=== PATIENT | female | born 1990 | race Caucasian/White ===

== ENCOUNTER 2019-12-26 16:47 | Inpatient (IN) | payer BC, OTHER ==
[2019-12-26] MEDS ORDERED: METHYLERGONOVINE 0.2 MG/ML 1 ML AMP IM PRN (18:17)
[2019-12-26] MEDS ORDERED: CARBOPROST TROMETHAMINE 250 MCG/ML 1 ML AMP IM PRN (18:17)
[2019-12-26] MEDS ORDERED: AMPICILLIN 2,000 MG in SODIUM CHLORIDE 0.9% 100 ML IVPB STA (18:17)
[2019-12-26] MEDS ORDERED: LIDOCAINE 0.5% (PF) 5 MG/ML (50 ML SDV) SQ PRN (18:17)
[2019-12-26] MEDS ORDERED: OXYTOCIN 10 UNIT/ML 1 ML VIAL IM PRN (18:17)
[2019-12-26] MEDS ORDERED: TERBUTALINE 1 MG/ML VIAL SQ PRN (18:17)
[2019-12-26] MEDS: LACTATED RINGERS 1,000 ML IV SCH ×2 (18:37→23:04)
[2019-12-26 19:00] LABS: Basophils % (A) 0 %; Eosinophils # (A) 0.1 k/uL (0-0.7); Eosinophils % (A) 1 %; HCT 38.2 % (34.0-46.0); HGB 12.5 gm/dL (11.4-16.0); Lymphocytes # (A) 2.1 k/uL (1.0-4.8); Lymphocytes % (A) 12 %; MCHC 32.8 g/dL (31.0-37.0); MCV 88.3 fL (80.0-100.0); Mean Platelet Volume 8.2; Monocytes # (A) 0.8 k/uL (0-1.0); Monocytes % (A) 5 %; Neutrophils # (A) 13.8 k/uL (1.3-7.7); Neutrophils % (A) 80 %; Platelet Count 268 k/uL (150-450); RBC 4.33 m/uL (3.80-5.40); RDW 14.2 % (11.5-15.5); WBC 17.2 k/uL (3.8-10.6)
[2019-12-26] MEDS ORDERED: SODIUM CHLORIDE 0.9% 100 ML BAG ONE (19:31)
[2019-12-26] MEDS ORDERED: fentaNYL (PF) 50 MCG/ML 5 ML AMP ONE (19:31)
[2019-12-26] MEDS ORDERED: ROPIVACAINE 5MG/ML 20ML VIAL ONE (19:31)
[2019-12-26] MEDS: AMPICILLIN 1,000 MG in SODIUM CHLORIDE 0.9% 50 ML IVPB SCH (23:04)
[2019-12-27] MEDS ORDERED: CITRIC ACID-SODIUM CITRATE 15 ML CUP PO ONE (01:05)
[2019-12-27] MEDS ORDERED: SUCCINYLCHOLINE CHLORIDE 100 MG/5 ML SYR IV ONE (01:26)
[2019-12-27] MEDS ORDERED: KETOROLAC 30 MG/ML 1 ML VIAL ONE (01:26)
[2019-12-27] MEDS ORDERED: PROPOFOL 10 MG/ML 20 ML VIAL IV ONE (01:26)
[2019-12-27] MEDS ORDERED: ceFAZolin 1,000 MG VIAL ONE (01:26)
[2019-12-27] MEDS ORDERED: fentaNYL (PF) 50 MCG/ML 2 ML AMP ONE (01:26)
[2019-12-27] MEDS ORDERED: HYDROmorphone (PF) 1 MG/ML ONE (01:26)
[2019-12-27] MEDS ORDERED: ONDANSETRON 4 MG/2 ML VIAL ONE (01:26)
[2019-12-27] MEDS ORDERED: diphenhydrAMINE 25 MG CAP PO PRN (02:09)
[2019-12-27] MEDS ORDERED: ZOLPIDEM 5 MG TAB PO PRN (02:09)
[2019-12-27] MEDS ORDERED: METOCLOPRAMIDE 5 MG/ML 2 ML VIAL IVP PRN (02:09)
[2019-12-27] MEDS ORDERED: ONDANSETRON 4 MG/2 ML VIAL IVP PRN (02:09)
[2019-12-27] MEDS ORDERED: NALOXONE 0.4 MG/ML 1 ML VIAL IV PRN ×2 (02:09→02:11)
[2019-12-27] MEDS ORDERED: ACETAMINOPHEN TAB 325 MG TAB PO PRN (02:09)
[2019-12-27] MEDS ORDERED: diphenhydrAMINE 50 MG/ML 1 ML VIAL IVP PRN ×2 (02:09)
[2019-12-27] MEDS ORDERED: IBUPROFEN 600 MG TAB PO PRN (02:09)
[2019-12-27] MEDS ORDERED: diphenhydrAMINE 50 MG CAP PO PRN (02:09)
--- NOTE | 2019-12-27 02:16 | P.OP ---
Date of Procedure: 12/27/19 Preoperative Diagnosis: Intrauterine : Failure to descend Postoperative Diagnosis: Same with occiput posterior position/cephalopelvic disproportion Procedure(s) Performed: Primary low transverse section Anesthesia: TOMASA Surgeon: Orlin Srivastava Shoe Repairer #1: Tangela Estrella Estimated Blood Loss (ml): 600 IV fluids (ml): 200 Urine output (ml): 600 Pathology: other (Placenta) Condition: stable Disposition: floor Operative Findings: Female scores of 57 and 8 at one and 5 and 10 minutes respectively weight was 5 lbs. 15 oz. straight OP position Description of Procedure: Patient was taken to the operating suite where a general anesthetic was found be adequate. She was prepped and draped in the normal sterile fashion placed in the dorsal supine position with leftward tilt. Initially a Pfannenstiel skin incision was made and this incision was then carried through to the underlying layer of the fascia. Fascia was then nicked in the midline and this opening was extended laterally with White scissors. Superior and inferior aspect of this incision were then grasped tented up and bluntly and sharply dissected off the rectus muscles. Rectus muscle then divided midline and blunt dissection. Peritoneum was made. This opening was then extended superiorly and inferiorly with good visualization of both bowel bladder. Bladder blade was then placed bladder flap identified and with Metzenbaum scissors and carried across face uterus with Metzenbaum scissors. Knife was then used to incise the uterus. This opening was then fully developed with hemostat and then bluntly extended. Head was then brought out of the pelvis from straight Opie position and mouth nares were then bulb suctioned. Interim posterior shoulders were easily delive red followed by the remainder the baby and the umbilical cord was then clamped cut usual fashion with nursery personnel present to assume care. Placenta was then delivered intact and Pitocin was added to the IV. Uterus was then exteriorized cleared of clots debris and closed in 2 layers with 0 Vicryl suture. Once excellent hemostasis was obtained blood and debris was suctioned from the posterior cul-de-sac and uterus was reinserted into the abdomen. Peritoneal layer was then closed with 0 Vicryl suture. Fascial was then closed with 0 Vicryl suture. One layer of 3-0 Vicryl was placed in deep subcuticular tissues reapproximate skin and close space. Skin was then closed with 3-0 Vicryl on a Deshawn needle. Sponge, lap needle counts were all correct 2. Patient was then taken to the recovery room in stable and satisfactory condition.
--- NOTE | 2019-12-27 02:19 | P.HPOB ---
History of Present Illness H&P Date: 12/27/19 Chief Complaint: Intrauterine at term: Active labor Silvana is a 29-year-old at 39 weeks gestation who arrives with contractions every 2-3 minutes making cervical change. She initially was dilated to 2 cm and at my evaluation she was dilated 4 cm 90% effaced -2 station. Artificial rupture membranes was performed and clear fluid is noted. She does made use of epidural for analgesia. Her course was, complicated by hyperemesis losing approximately 30 pounds in the first 18 weeks the , what to stabilize she did well. Once this resolved she had no further complications or issues with the . It is noted that patient is heart hearing but she does read lips well and does hear some. GBS is noted positive. Pertinent labs include open negative blood type Rh antibody was negative. Rubella is immune. Hepatitis B surface antigen was also negative as was HIV and RPR. heart tones show a category 1 tracing and are reactive. Assessment intrauterine at term. Plan expect spontaneous vaginal delivery. Past Medical History Past Medical History: Hearing Disorder / Deafness, Seizure Disorder Additional Past Medical History / Comment(s): [place]- able to read lips,seizures as an infant-only on meds as an ,asthma as a child History of Any Multi-Drug Resistant Organisms: None Reported Past Surgical History: Breast Surgery Additional Past Surgical History / Comment(s): growth removed rt breast Past Anesthesia/Blood Transfusion Reactions: No Reported Reaction Past Psychological History: Anxiety, Depression Smoking Status: Never smoker Past Alcohol Use History: Occasional Past Drug Use History: None Reported - Past Family History Mother Family Medical History: No Reported History Father Family Medical History: Hyperlipidemia, Hypertension Medications and Allergies Home Medications Medication Instructions Recorded Confirmed Type Esomeprazole Magnesium [NexIUM] 1 tab PO DAILY 12/26/19 12/26/19 History Pnv,Calcium 72/Iron/Folic Acid 1 tab PO DAILY 12/26/19 12/26/19 History [ Plus Tablet] Allergies Allergy/AdvReac Type Severity Reaction Status Date / Time No Known Allergies Allergy Verified 12/26/19 17:05 Exam Osteopathic Statement: *. No significant issues noted on an osteopathic structural exam other than those noted in the History and Physical/Consult. Vital Signs Temp Pulse Resp BP Pulse Ox 12/26/19 17:08 97.0 F L 100 18 128/88 98 Intake and Output 12/26/19 12/26/19 12/27/19 14:59 22:59 06:59 Output Total 350 Balance -350 Output: Urine 350 Other: Weight 86.636 kg - OBG Physical Exam Breast: both: normal (no masses) Abdomen: bowel sounds normal, no diffuse tenderness, no bruit present, no guarding noted, no hepatomegaly, no splenomegaly, no mass Vulva: both: normal Vagina: normal moisture, no discharge Cervix: no lesion, no discharge Uterus: normal size, normal contour Adnexa: both: normal Anus/Rectum: normal perianal skin, no rectal mass, no hemorrhoids, heme negative Results Result Diagrams: 12/26/19 18:35 Abnormal Lab Results - Last 24 Hours (Table) 12/26/19 Range/Units 18:35 WBC 17.2 H (3.8-10.6) k/uL Neutrophils # 13.8 H (1.3-7.7) k/uL
[2019-12-27] MEDS ORDERED: HYDROmorphone PCA 10 MG/50 ML BAG IV PRN (04:00)
[2019-12-27] MEDS ORDERED: Rhogam IMMUNE GLOBULIN 1,500 UNIT/1 ML IM ONE (06:33)
[2019-12-27] MEDS: AMPICILLIN 1,000 MG in SODIUM CHLORIDE 0.9% 50 ML IVPB SCH ×3 (08:31→11:05)
[2019-12-27] MEDS: LACTATED RINGERS 1,000 ML IV SCH ×3 (08:32→17:25)
[2019-12-27] MEDS: KETOROLAC 30 MG/ML 1 ML VIAL IVP PRN ×3 (09:30→22:12)
[2019-12-27] MEDS: SENNOSIDES-DOCUSATE SODIUM 1 EACH TAB PO SCH ×2 (09:32→22:26)
[2019-12-28] MEDS: SENNOSIDES-DOCUSATE SODIUM 1 EACH TAB PO SCH ×2 (02:53→22:31)
[2019-12-28] MEDS: KETOROLAC 30 MG/ML 1 ML VIAL IVP PRN (04:18)
[2019-12-28 07:53] LABS: Basophils % (A) 0 %; Eosinophils # (A) 0.1 k/uL (0-0.7); Eosinophils % (A) 1 %; HCT 32.2 % (34.0-46.0); HGB 10.4 gm/dL (11.4-16.0); Lymphocytes # (A) 1.1 k/uL (1.0-4.8); Lymphocytes % (A) 8 %; MCH 29.1 pg (25.0-35.0); MCHC 32.3 g/dL (31.0-37.0); MCV 90.2 fL (80.0-100.0); Mean Platelet Volume 8.4; Monocytes # (A) 0.7 k/uL (0-1.0); Monocytes % (A) 5 %; Neutrophils # (A) 12.1 k/uL (1.3-7.7); Neutrophils % (A) 85 %; Platelet Count 211 k/uL (150-450); RBC 3.57 m/uL (3.80-5.40); RDW 14.3 % (11.5-15.5); WBC 14.2 k/uL (3.8-10.6)
--- NOTE | 2019-12-28 08:09 | P.PNOBGPC ---
Subjective - Subjective Principal diagnosis: Postop day 1 Interval history: Silvana is doing very well postop day 1. She is involuting, voiding and tolerating her diet. She is had a bowel movement. Incision is intact. Voices no complaints. Does have some incisional pain will start her on oral pain medication today. All the questions are answered for her at this time. Objective - Vital Signs Latest vital signs: Vital Signs Temp Pulse Resp BP Pulse Ox 12/28/19 03:00 97.8 F 123 H 16 122/71 98 12/27/19 20:00 98 F 76 18 124/70 98 12/27/19 16:00 98.5 F 120 H 18 116/68 12/27/19 12:00 98.5 F 106 H 16 108/63 95 Intake and Output 12/27/19 12/28/19 12/28/19 22:59 06:59 14:59 Output Total 250 Balance -250 Output: Urine 250 - Exam Lungs: bilateral: normal Chest: Normal S1, Normal S2 Extremities: Present: normal Abdomen: Present: normal appearance, soft. Absent: distention, tenderness Incision: Present: normal, dry, intact Uterus: Present: normal, firm - Labs Labs: Abnormal Lab Results - Last 24 Hours (Table) 12/28/19 Range/Units 06:27 WBC 14.2 H (3.8-10.6) k/uL RBC 3.57 L (3.80-5.40) m/uL Hgb 10.4 L (11.4-16.0) gm/dL Hct 32.2 L (34.0-46.0) % Neutrophils # 12.1 H (1.3-7.7) k/uL
[2019-12-28] MEDS: HYDROcodone/APAP 7.5-325MG 1 EACH TAB PO PRN ×3 (08:35→20:28)
[2019-12-28] MEDS: IBUPROFEN 600 MG TAB PO SCH ×2 (11:26→17:55)
[2019-12-29] MEDS: HYDROcodone/APAP 7.5-325MG 1 EACH TAB PO PRN ×3 (03:01→17:06)
[2019-12-29] MEDS: IBUPROFEN 600 MG TAB PO SCH ×5 (06:22→20:26)
[2019-12-29] MEDS: SENNOSIDES-DOCUSATE SODIUM 1 EACH TAB PO SCH ×2 (08:55→20:25)
--- NOTE | 2019-12-29 10:51 | P.PNOBGPC ---
Subjective - Subjective Principal diagnosis: Postop day 2 Interval history: Silvana is doing well postop day 2. She is involuting, voiding and tolerating her diet. She wishes to stay until tomorrow. Otherwise vital signs are stable and afebrile and she voices no complaints other than incisional pain. Patient reports: Reports appetite normal, Reports voiding normally, Reports pain well controlled, Reports ambulating normally : doing well Objective - Vital Signs Latest vital signs: Vital Signs Temp Pulse Resp BP Pulse Ox 12/29/19 00:00 98.3 F 106 H 16 109/68 98 12/28/19 15:12 97.5 F L 112 H 18 105/73 98 - Exam Lungs: bilateral: normal Chest: Normal S1, Normal S2 Extremities: Present: normal Abdomen: Present: normal appearance, soft. Absent: distention, tenderness Incision: Present: normal, dry, intact Uterus: Present: normal, firm
[2019-12-30] MEDS: HYDROcodone/APAP 7.5-325MG 1 EACH TAB PO PRN ×3 (00:10→12:02)
[2019-12-30] MEDS: IBUPROFEN 600 MG TAB PO PRN ×2 (03:10→08:32)
[2019-12-30] MEDS: SENNOSIDES-DOCUSATE SODIUM 1 EACH TAB PO SCH (08:29)
[2019-12-30 08:58] VITALS: BP 118/65; PULSE 91; RESP 17; TEMP 97.4
--- NOTE | 2019-12-30 11:22 | P.DS ---
Providers Date of admission: 12/26/19 18:07 Expected date of discharge: 12/30/19 Attending physician: Orlin Srivastava Primary care physician: Orlin Srivastava [facility] Course: This is a 29-year-old female 1 para 0 at 39-0/7 weeks. Please see history and physical for details the patient admission. She underwent a primary section on 12/27/2019 and delivered a viable female infant with Apgars of 5 at 1 minute and 7 at 5 minutes and weight of 5 lbs. 15 oz. Postoperatively, she has been doing well. She is breast-feeding. Lochia is decreasing. Her pain is fairly well controlled. She does complain of swelling in her legs. Vital signs are stable. Abdomen is soft with positive bowel sounds 4. Incision is clean dry and intact with Steri-Strips in place. There is a small amount of ecchymosis below the incision on the left side. Extremities show 2+ pitting edema. Impression is status post primary section postoperative day #3. Plan is to discharge home today. Routine and postoperative instructions are given. Prescriptions already been sent and per Dr. Srivastava. She is advised to follow up in the office in [address] Srivastava and in 6 weeks for a check. She is advised to call the office if she has any further questions or concerns prior to her appointment time. She will be given an abdominal binder per her request. Procedures: Primary low transverse section on 12/27/2019 Patient Condition at Discharge: Stable Plan - Discharge Summary New Discharge Prescriptions: New Ibuprofen [Motrin] 600 mg PO Q6HR PRN #30 tab PRN Reason: Pain HYDROcodone/APAP 5-325MG [[place] 5-325] 1 tab PO Q4HR PRN #30 tab PRN Reason: Pain No Action Pnv,Calcium 72/Iron/Folic Acid [ Plus Tablet] 1 tab PO DAILY Esomeprazole Magnesium [NexIUM] 1 tab PO DAILY Discharge Medication List Esomeprazole Magnesium [NexIUM] 1 tab PO DAILY 12/26/19 [History] Pnv,Calcium 72/Iron/Folic Acid [ Plus Tablet] 1 tab PO DAILY 12/26/19 [History] HYDROcodone/APAP 5-325MG [[place] 5-325] 1 tab PO Q4HR PRN #30 tab 12/29/19 [Rx] Ibuprofen [Motrin] 600 mg PO Q6HR PRN #30 tab 12/29/19 [Rx] Follow up Appointment(s)/Referral(s): Orlin Srivastava DO [Primary Care Provider] - 1 Week Patient Instructions/Handouts: (DC) Activity/Diet/Wound Care/Special Instructions: No heavy lifting, limit stairs and driving, and pelvic rest. If any high temperatures, heavy bleeding, or severe pain call my office Discharge Disposition: HOME SELF-CARE
== END 2019-12-30 12:30 | disposition home or self-care (01) | DRG 788 ==
LOC: FBPOP 16:47 → 4FBP 18:07
PROVIDERS: ADMIT Obstetrics & Gynecology; ATTEND Obstetrics & Gynecology
PROC: 3E0R3BZ Introduction of Anesthetic Agent into Spinal Canal, Percutaneous Approach (ICD-10-PCS; 2019-12-26)
PROC: 00HU33Z Insertion of Infusion Device into Spinal Canal, Percutaneous Approach (ICD-10-PCS; 2019-12-26)
PROC: 10D00Z1 Extraction of Products of Conception, Low, Open Approach (ICD-10-PCS; principal; 2019-12-27 01:14)
DX: O65.4 Obstructed labor due to fetopelvic disproportion, unspecified (principal); O99.824 Streptococcus B carrier state complicating childbirth; Z37.0 Single live birth; O21.0 Mild hyperemesis gravidarum; O99.62 Diseases of the digestive system complicating childbirth; K21.9 Gastro-esophageal reflux disease without esophagitis; H91.90 Unspecified hearing loss, unspecified ear; Z3A.39 39 weeks gestation of pregnancy; Z97.4 Presence of external hearing-aid; Z79.899 Other long term (current) drug therapy; Z87.09 Personal history of other diseases of the respiratory system; Z86.69 Personal history of other diseases of the nervous system and sense organs; Z86.59 Personal history of other mental and behavioral disorders; Z82.49 Family history of ischemic heart disease and other diseases of the circulatory system; Z83.49 Family history of other endocrine, nutritional and metabolic diseases
CPT/HCPCS: 59025; 85025; 85461; 86850; 86870; 86880; 86900; 86901; 88307; 99213